=== PATIENT | female | born 1950 | race Caucasian/White ===

== ENCOUNTER 2022-02-13 13:08 | Outpatient (CLI) | payer MEDICARE | END 2022-02-13 13:09 | disposition home or self-care (01) | LOC: SCSMRI 13:08 | PROVIDERS: ATTEND Radiology Radiation Oncology | DX: C71.9 Malignant neoplasm of brain, unspecified (principal); Z98.890 Other specified postprocedural states | CPT/HCPCS: 70250; 70553; 82565 ==

== ENCOUNTER 2022-05-21 14:24 | Day surgery (SDC) | payer MEDICARE ==
[2022-05-21] MEDS ORDERED: Famotidine/PF 20 mg/2ml Vial SLOW IVP SCH (16:00)
[2022-05-21] MEDS ORDERED: Dexamethasone 10 MG/ML VIAL SLOW IVP SCH (16:00)
[2022-05-21] MEDS ORDERED: diphenhydrAMINE 50 MG/ML VIAL IVP SCH (16:00)
[2022-05-21] MEDS ORDERED: diphenhydrAMINE 25 MG CAP ONE (16:06)
[2022-05-21] MEDS ORDERED: Acetaminophen 500 MG TAB ONE (16:06)
[2022-05-21] MEDS ORDERED: Famotidine/PF 20 mg/2ml Vial ONE (17:22)
[2022-05-21] MEDS ORDERED: Dexamethasone 10 MG/ML VIAL ONE (17:22)
[2022-05-21 20:11] VITALS: TEMP 98.6
[2022-05-21 20:12] VITALS: BP 166/75
== END 2022-05-21 19:15 | disposition home or self-care (01) ==
LOC: ONC/OP 14:24
PROVIDERS: ATTEND Internal Medicine Hematology & Oncology
PROC: 30233R1 Transfusion of Nonautologous Platelets into Peripheral Vein, Percutaneous Approach (ICD-10-PCS; principal; 2022-05-21)
DX: D69.6 Thrombocytopenia, unspecified (principal); D64.9 Anemia, unspecified; Z88.0 Allergy status to penicillin; Z88.2 Allergy status to sulfonamides
CPT/HCPCS: 36415; 36430; 80053; 81001; 82248; 83615; 84100; 84550; 85025; 86850; 86900; 86901; 99212; G0463; J1100; P9035; S0028

== ENCOUNTER 2022-06-03 18:26 | Observation (INO) | payer MEDICARE ==
[~2022-06-03 18:26] MED LIST: Iopamidol-370 76% 500 ML 1 ML ONE
[2022-06-03 20:32] LABS: Mean Corpuscular HGB CONC 33.7 g/dL (32.0-36.0); Mean Corpuscular Hemoglobin 30.6 pg (27.0-31.0); Mean Corpuscular Volume 90.8 fl (78.0-98.0); Mean Platelet Volume 7.7 fL (7.4-10.4); Platelet Count 136 10x3/uL (130-400); RBC Distribution Width 18.8 % (11.5-14.5)
[2022-06-03 20:53] LABS: ALT (SGPT) 13 U/L (8-55); AST (SGOT) 12 U/L (5-34); Albumin 3.6 g/dL (3.4-4.8); Alkaline Phosphatase 81 U/L (40-110); Anion Gap 10 mmol/L (10-20); BUN (Urea Nitrogen) 17 mg/dL (9.8-20.1); Bilirubin, Total 0.5 mg/dL (0.2-1.2); Calc. Creatinine Clearance 0 mL/min (70-130); Calcium 8.2 mg/dL (7.8-10.44); Carbon Dioxide 24 mmol/L (23-31); Chloride 108 mmol/L (98-107); Estimated GFR 78; Globulin 2.3 g/dL (2.4-3.5); Glucose 140 mg/dL (83-110); Potassium 4.6 mmol/L (3.5-5.1); Protein, Total 5.9 g/dL (5.8-8.1); Sodium 137 mmol/L (136-145)
[2022-06-03 20:57] LABS: Band 16 % (5-11); Hypochromia SLIGHT = 6-15 cells (100X) (0-5/hpf); Lymphocytes 8 % (21-51); MDiff Complete? YES; Monocytes 36 % (0-10); Neutrophil 40 % (42-75); Platelet Morphology Comment Appears Adequate
[2022-06-03 20:57] LABS: INR-International Normal Ratio 1.2; Prothrombin Time 15.8 sec (12.0-14.7)
[2022-06-03 20:58] LABS: PTT 24.3 sec (22.9-36.1)
[2022-06-03] MEDS ORDERED: Senokot S 8.6-50 MG TAB PO PRN (22:43)
[2022-06-03] MEDS ORDERED: Ondansetron ODT 4 MG TAB PO PRN (22:43)
[2022-06-03] MEDS ORDERED: Acetaminophen 325 MG TAB PO PRN (22:43)
[2022-06-03] MEDS ORDERED: Heparin 10,000 UNITS/ 10 ML VIAL SLOW IVP SCH (22:45)
[2022-06-03 23:24] LABS: Hemoglobin 10.9 g/dL (12.0-16.0); Platelet Count 131 10x3/uL (130-400)
[2022-06-03 23:34] LABS: Hemoglobin A1c 6.3 % (4.0-6.0)
[2022-06-04 01:31] VITALS: BMI 32.2
[2022-06-04 04:42] LABS: SARS-CoV-2 NAA Rapid Test DETECTED (NotDetected)
[2022-06-04] MEDS ORDERED: Levothyroxine Sodium 125 MCG TAB PO SCH (06:00)
[2022-06-04 08:04] LABS: Hemoglobin 10.6 g/dL (12.0-16.0); Mean Corpuscular HGB CONC 33.7 g/dL (32.0-36.0); Mean Corpuscular Hemoglobin 30.9 pg (27.0-31.0); Mean Corpuscular Volume 91.6 fl (78.0-98.0); Mean Platelet Volume 8.1 fL (7.4-10.4); Platelet Count 165 10x3/uL (130-400); RBC Distribution Width 19.1 % (11.5-14.5); Red Blood Cell (RBC) Count 3.45 mill/uL (4.20-5.40); White Blood Cell (WBC) Count 1.9 10x3/uL (4.8-10.8)
[2022-06-04 08:34] LABS: PTT Greater than 250.0 sec (22.9-36.1)
[2022-06-04] MEDS ORDERED: Heparin 25,000 units/D5W 500 ML IVPB SCH (09:00)
[2022-06-04] MEDS ORDERED: Famotidine 20 MG TAB PO SCH (09:00)
[2022-06-04] MEDS ORDERED: levETIRAcetam 500 MG TAB PO SCH (09:00)
[2022-06-04 09:21] LABS: Band 8 % (5-11); Lymphocytes 28 % (21-51); MDiff Complete? YES; Monocytes 26 % (0-10); Neutrophil 38 % (42-75); Nucleated RBC 2 % (0); Platelet Morphology Comment Appears Adequate; Polychromasia SLIGHT = 2-3 cells (100X) (0-2/hpf)
[2022-06-04 10:04] VITALS: BP 134/71; TEMP 97.6
== END 2022-06-04 12:15 | disposition home or self-care (01) ==
LOC: ERS 18:26 → 2SW 22:27
PROVIDERS: ADMIT Hospitalist; ATTEND Hospitalist
DX: I82.412 Acute embolism and thrombosis of left femoral vein (principal); I82.492 Acute embolism and thrombosis of other specified deep vein of left lower extremity; I82.432 Acute embolism and thrombosis of left popliteal vein; D36.7 Benign neoplasm of other specified sites; C71.9 Malignant neoplasm of brain, unspecified; E78.5 Hyperlipidemia, unspecified; E11.9 Type 2 diabetes mellitus without complications; I10 Essential (primary) hypertension; E03.9 Hypothyroidism, unspecified; D72.819 Decreased white blood cell count, unspecified; K44.9 Diaphragmatic hernia without obstruction or gangrene; U07.1 COVID-19; Z66 Do not resuscitate; Z79.890 Hormone replacement therapy; Z79.899 Other long term (current) drug therapy; Z88.0 Allergy status to penicillin; Z88.2 Allergy status to sulfonamides; Z89.511 Acquired absence of right leg below knee
CPT/HCPCS: 71275; 80053; 83036; 83605; 83880; 84484; 85014; 85018; 85025 ×2; 85049; 85610; 85730 ×3; 93971; 96374; 96376; 99284; G0378 ×2; U0002; 36415; J1644; Q9967

== ENCOUNTER 2022-07-14 16:57 | Inpatient (IN) | payer MEDICARE ==
[2022-07-14 19:09] LABS: #Lymphocytes 0.2 thou/uL (1.20-3.40); #Monocytes 0.3 thou/uL (0.11-0.59); #Neutrophils 4.1 thou/uL (1.40-6.50); %Basophils 0.2 % (0.0-1.0); %Eosinophils 0.4 % (0.0-10.0); %Lymphocytes 4.3 % (21.0-51.0); %Monocytes 5.4 % (0.0-10.0); %Neutrophils 89.8 % (42.0-75.0); Hemoglobin 12.2 g/dL (12.0-16.0); Mean Corpuscular HGB CONC 34.2 g/dL (32.0-36.0); Mean Corpuscular Hemoglobin 32.8 pg (27.0-31.0); Mean Corpuscular Volume 95.8 fl (78.0-98.0); Mean Platelet Volume 8.8 fL (7.4-10.4); Platelet Count 57 10x3/uL (130-400); RBC Distribution Width 18.2 % (11.5-14.5); Red Blood Cell (RBC) Count 3.72 mill/uL (4.20-5.40); White Blood Cell (WBC) Count 4.6 10x3/uL (4.8-10.8)
[2022-07-14] MEDS ORDERED: Cefepime 2 GM VIAL ONE (19:22)
[2022-07-14 19:24] LABS: Anisocytosis SLIGHT = 6-15 cells (100X) (0-5/hpf); MDiff Complete? YES; Ovalocytes SLIGHT = 2-5 cells (100X) (0-1/hpf); Platelet Morphology Comment Appears Decreased; Polychromasia SLIGHT = 2-3 cells (100X) (0-2/hpf)
[2022-07-14 19:25] LABS: ALT (SGPT) 17 U/L (8-55); AST (SGOT) 15 U/L (5-34); Albumin 3.5 g/dL (3.4-4.8); Alkaline Phosphatase 54 U/L (40-110); Anion Gap 12 mmol/L (10-20); BUN (Urea Nitrogen) 15 mg/dL (9.8-20.1); Bilirubin, Total 0.9 mg/dL (0.2-1.2); Calc. Creatinine Clearance 0 mL/min (70-130); Calcium 8.5 mg/dL (7.8-10.44); Carbon Dioxide 24 mmol/L (23-31); Chloride 103 mmol/L (98-107); Estimated GFR 71; Glucose 112 mg/dL (83-110); Potassium 4.1 mmol/L (3.5-5.1); Protein, Total 6.5 g/dL (5.8-8.1); Sodium 135 mmol/L (136-145)
[2022-07-14 19:27] LABS: Lipase 15 U/L (8-78)
[2022-07-14 19:28] LABS: CK (CPK) 18 U/L (29-168)
[2022-07-14 19:55] LABS: Bilirubin Negative (Negative); Blood, Urine Negative (Negative); Clarity Clear (Clear); Glucose, Urine (Dipstick) Normal (Negative); Ketone, Urine Negative (Negative); Leukocyte Negative Leu/uL (Negative); Nitrite Negative (Negative); Protein, Urine (Dipstick) 10 mg/dL (Neg-Trace); Specific Gravity, Urine 1.014 (1.002-1.036)
[2022-07-14] MEDS ORDERED: VANCOMYCIN 2 GRAM/500 ML BAG 2 GM in Premix Bag 1 BAG IVPB SCH (21:00)
[2022-07-14] MEDS ORDERED: Ondansetron PF 4 MG/2 ML Vial IVP PRN (22:20)
[2022-07-14] MEDS ORDERED: Acetaminophen 650 MG Suppository PR PRN (22:20)
[2022-07-14] MEDS ORDERED: Ondansetron ODT 4 MG TAB PO PRN (22:20)
[2022-07-15] MEDS: Sodium Chloride 0.9% 1,000 ML IV SCH ×3 (01:22→20:55)
[2022-07-15 01:35] VITALS: BMI 33.5
[2022-07-15 07:31] LABS: #Lymphocytes 0.1 thou/uL (1.20-3.40); #Monocytes 0.2 thou/uL (0.11-0.59); #Neutrophils 3.4 thou/uL (1.40-6.50); %Eosinophils 0.6 % (0.0-10.0); %Lymphocytes 2.3 % (21.0-51.0); %Monocytes 5.6 % (0.0-10.0); %Neutrophils 90.5 % (42.0-75.0); Hemoglobin 10.1 g/dL (12.0-16.0); Mean Corpuscular HGB CONC 32.9 g/dL (32.0-36.0); Mean Corpuscular Hemoglobin 31.8 pg (27.0-31.0); Mean Corpuscular Volume 96.8 fl (78.0-98.0); Mean Platelet Volume 9.3 fL (7.4-10.4); Platelet Count 53 10x3/uL (130-400); RBC Distribution Width 17.7 % (11.5-14.5); Red Blood Cell (RBC) Count 3.17 mill/uL (4.20-5.40); White Blood Cell (WBC) Count 3.7 10x3/uL (4.8-10.8)
[2022-07-15 08:01] LABS: Anion Gap 10 mmol/L (10-20); BUN (Urea Nitrogen) 11 mg/dL (9.8-20.1); Calc. Creatinine Clearance 108 mL/min (70-130); Calcium 7.7 mg/dL (7.8-10.44); Carbon Dioxide 20 mmol/L (23-31); Chloride 108 mmol/L (98-107); Estimated GFR 91; Glucose 110 mg/dL (83-110); Potassium 3.8 mmol/L (3.5-5.1); Sodium 134 mmol/L (136-145)
[2022-07-15] MEDS ORDERED: VANCOMYCIN 1.25 GM/250 ML BAG IVPB SCH (09:00)
[2022-07-15] MEDS: Cefepime 2 GM in Sodium Chloride 0.9% 100 ML IVPB SCH ×2 (09:14→20:54)
[2022-07-15] MEDS: Acetaminophen 325 MG TAB PO PRN ×2 (15:33→20:54)
[2022-07-15] MEDS ORDERED: Dexamethasone 4 MG TAB PO SCH (16:30)
[2022-07-15] MEDS ORDERED: hydrOXYzine 25 MG TAB PO SCH (20:15)
[2022-07-15] MEDS: levETIRAcetam 500 MG TAB PO SCH (20:53)
[2022-07-15] MEDS: Apixaban 5 MG TAB PO SCH (20:53)
[2022-07-15] MEDS: VANCOMYCIN 1.75 GM/500 ML BAG 1.75 GM in Premix Bag 1 BAG IVPB SCH (23:28)
[2022-07-16] MEDS: Acetaminophen 325 MG TAB PO PRN ×2 (05:01→23:11)
[2022-07-16] MEDS: Levothyroxine Sodium 125 MCG TAB PO SCH (05:02)
[2022-07-16] MEDS: Sodium Chloride 0.9% 1,000 ML IV SCH ×3 (06:30→23:40)
[2022-07-16 09:25] LABS: #Lymphocytes 0.2 thou/uL (1.20-3.40); #Monocytes 0.2 thou/uL (0.11-0.59); #Neutrophils 3.8 thou/uL (1.40-6.50); %Eosinophils 0.6 % (0.0-10.0); %Lymphocytes 4.7 % (21.0-51.0); %Monocytes 3.5 % (0.0-10.0); %Neutrophils 91.1 % (42.0-75.0); Hemoglobin 11.4 g/dL (12.0-16.0); Mean Corpuscular HGB CONC 32.3 g/dL (32.0-36.0); Mean Corpuscular Hemoglobin 31.1 pg (27.0-31.0); Mean Platelet Volume 9.4 fL (7.4-10.4); Platelet Count 63 10x3/uL (130-400); RBC Distribution Width 17.4 % (11.5-14.5); Red Blood Cell (RBC) Count 3.69 mill/uL (4.20-5.40); White Blood Cell (WBC) Count 4.1 10x3/uL (4.8-10.8)
[2022-07-16] MEDS: Cefepime 2 GM in Sodium Chloride 0.9% 100 ML IVPB SCH ×2 (09:43→21:00)
[2022-07-16] MEDS: Furosemide 40 MG TAB PO SCH (09:45)
[2022-07-16] MEDS: levETIRAcetam 500 MG TAB PO SCH ×2 (09:45→21:00)
[2022-07-16] MEDS: Apixaban 5 MG TAB PO SCH ×2 (09:45→21:00)
[2022-07-16 10:43] LABS: Anion Gap 12 mmol/L (10-20); BUN (Urea Nitrogen) 13 mg/dL (9.8-20.1); Calc. Creatinine Clearance 113 mL/min (70-130); Calcium 8.4 mg/dL (7.8-10.44); Carbon Dioxide 18 mmol/L (23-31); Chloride 113 mmol/L (98-107); Estimated GFR 92; Glucose 145 mg/dL (83-110); Potassium 3.6 mmol/L (3.5-5.1); Sodium 139 mmol/L (136-145)
[2022-07-16 22:49] LABS: Vancomycin, Trough 12.3 ug/mL
[2022-07-16] MEDS: VANCOMYCIN 1.75 GM/500 ML BAG 1.75 GM in Premix Bag 1 BAG IVPB SCH (23:15)
[2022-07-16] MEDS: VANCOMYCIN 2 GRAM/500 ML BAG 2 GM in Premix Bag 1 BAG IVPB SCH (23:36)
[2022-07-17] MEDS: Levothyroxine Sodium 125 MCG TAB PO SCH (05:46)
[2022-07-17 06:45] LABS: Hemoglobin 10.9 g/dL (12.0-16.0); Mean Corpuscular Hemoglobin 32.1 pg (27.0-31.0); Mean Corpuscular Volume 97.4 fl (78.0-98.0); Mean Platelet Volume 10.1 fL (7.4-10.4); Platelet Count 64 10x3/uL (130-400); RBC Distribution Width 17.8 % (11.5-14.5); Red Blood Cell (RBC) Count 3.38 mill/uL (4.20-5.40); White Blood Cell (WBC) Count 4.5 10x3/uL (4.8-10.8)
[2022-07-17 07:05] LABS: Anion Gap 13 mmol/L (10-20); BUN (Urea Nitrogen) 13 mg/dL (9.8-20.1); Calc. Creatinine Clearance 109 mL/min (70-130); Calcium 8.2 mg/dL (7.8-10.44); Carbon Dioxide 18 mmol/L (23-31); Chloride 111 mmol/L (98-107); Estimated GFR 92; Glucose 95 mg/dL (83-110); Potassium 4.3 mmol/L (3.5-5.1); Sodium 138 mmol/L (136-145)
[2022-07-17] MEDS: Furosemide 40 MG TAB PO SCH (08:12)
[2022-07-17] MEDS: levETIRAcetam 500 MG TAB PO SCH ×2 (08:12→21:30)
[2022-07-17] MEDS: Dexamethasone 4 MG TAB PO SCH (08:12)
[2022-07-17] MEDS: Cefepime 2 GM in Sodium Chloride 0.9% 100 ML IVPB SCH ×2 (08:12→21:29)
[2022-07-17] MEDS: Apixaban 5 MG TAB PO SCH ×2 (08:12→21:29)
[2022-07-17] MEDS: Sodium Chloride 0.9% 1,000 ML IV SCH (08:29)
[2022-07-17 09:30] LABS: Band 30 % (5-11); Lymphocytes 5 % (21-51); MDiff Complete? YES; Monocytes 3 % (0-10); Neutrophil 59 % (42-75); Platelet Morphology Comment Appears Decreased; RBC Morphology Normal; Reactive Lymphocytes 3 % (0-10)
[2022-07-18] MEDS: Acetaminophen 325 MG TAB PO PRN ×3 (00:22→19:57)
[2022-07-18] MEDS: VANCOMYCIN 2 GRAM/500 ML BAG 2 GM in Premix Bag 1 BAG IVPB SCH (00:56)
[2022-07-18] MEDS: Levothyroxine Sodium 125 MCG TAB PO SCH (05:33)
[2022-07-18] MEDS: Sodium Chloride 0.9% 1,000 ML IV SCH ×2 (05:33→08:47)
[2022-07-18 07:03] LABS: #Lymphocytes 0.2 thou/uL (1.20-3.40); #Monocytes 0.2 thou/uL (0.11-0.59); #Neutrophils 2.9 thou/uL (1.40-6.50); %Eosinophils 1.2 % (0.0-10.0); %Lymphocytes 4.9 % (21.0-51.0); %Neutrophils 86.9 % (42.0-75.0); Hemoglobin 9.8 g/dL (12.0-16.0); Mean Corpuscular HGB CONC 34.7 g/dL (32.0-36.0); Mean Corpuscular Hemoglobin 33.6 pg (27.0-31.0); Mean Corpuscular Volume 96.8 fl (78.0-98.0); Mean Platelet Volume 9.3 fL (7.4-10.4); Platelet Count 64 10x3/uL (130-400); RBC Distribution Width 17.6 % (11.5-14.5); Red Blood Cell (RBC) Count 2.92 mill/uL (4.20-5.40); White Blood Cell (WBC) Count 3.3 10x3/uL (4.8-10.8)
[2022-07-18 07:11] LABS: Anion Gap 11 mmol/L (10-20); BUN (Urea Nitrogen) 15 mg/dL (9.8-20.1); Calc. Creatinine Clearance 111 mL/min (70-130); Calcium 8.1 mg/dL (7.8-10.44); Carbon Dioxide 20 mmol/L (23-31); Chloride 112 mmol/L (98-107); Estimated GFR 92; Glucose 102 mg/dL (83-110); Potassium 3.5 mmol/L (3.5-5.1); Sodium 139 mmol/L (136-145)
[2022-07-18] MEDS: Apixaban 5 MG TAB PO SCH ×2 (08:46→19:57)
[2022-07-18] MEDS: Cefepime 2 GM in Sodium Chloride 0.9% 100 ML IVPB SCH ×2 (08:46→19:57)
[2022-07-18] MEDS: Furosemide 40 MG TAB PO SCH (08:46)
[2022-07-18] MEDS: levETIRAcetam 500 MG TAB PO SCH ×2 (08:46→19:57)
[2022-07-18 23:14] LABS: Vancomycin, Trough 15.8 ug/mL
[2022-07-19] MEDS: VANCOMYCIN 2 GRAM/500 ML BAG 2 GM in Premix Bag 1 BAG IVPB SCH (00:42)
[2022-07-19] MEDS: Levothyroxine Sodium 125 MCG TAB PO SCH (05:56)
[2022-07-19 07:11] LABS: #Eosinphils 0.1 thou/uL (0.0-0.7); #Lymphocytes 0.1 thou/uL (1.20-3.40); #Monocytes 0.3 thou/uL (0.11-0.59); #Neutrophils 3.5 thou/uL (1.40-6.50); %Eosinophils 1.8 % (0.0-10.0); %Lymphocytes 3.5 % (21.0-51.0); %Neutrophils 87.7 % (42.0-75.0); Hemoglobin 9.5 g/dL (12.0-16.0); Mean Corpuscular Hemoglobin 32.9 pg (27.0-31.0); Mean Corpuscular Volume 96.8 fl (78.0-98.0); Mean Platelet Volume 9.2 fL (7.4-10.4); Platelet Count 73 10x3/uL (130-400); RBC Distribution Width 17.4 % (11.5-14.5)
[2022-07-19 07:28] LABS: Anion Gap 12 mmol/L (10-20); BUN (Urea Nitrogen) 15 mg/dL (9.8-20.1); Calc. Creatinine Clearance 106 mL/min (70-130); Carbon Dioxide 22 mmol/L (23-31); Chloride 106 mmol/L (98-107); Estimated GFR 91; Glucose 104 mg/dL (83-110); Potassium 3.6 mmol/L (3.5-5.1); Sodium 136 mmol/L (136-145)
[2022-07-19] MEDS: levETIRAcetam 500 MG TAB PO SCH ×2 (08:49→21:01)
[2022-07-19] MEDS: Cefepime 2 GM in Sodium Chloride 0.9% 100 ML IVPB SCH ×2 (08:49→21:02)
[2022-07-19] MEDS: Furosemide 40 MG TAB PO SCH (08:49)
[2022-07-19] MEDS: Apixaban 5 MG TAB PO SCH ×2 (08:49→21:01)
[2022-07-19] MEDS: Dexamethasone 4 MG TAB PO SCH (08:49)
[2022-07-19] MEDS: Acetaminophen 325 MG TAB PO PRN (08:52)
[2022-07-19] MEDS ORDERED: Bisacodyl 5 MG TAB PO PRN (10:37)
[2022-07-19] MEDS ORDERED: Ibuprofen 200 MG TAB PO PRN (10:38)
[2022-07-19] MEDS ORDERED: Polyethylene Glycol 3350 17 GM Packet PO PRN (17:58)
[2022-07-19] MEDS ORDERED: Acetaminophen 325 MG TAB PO PRN (19:00)
[2022-07-19] MEDS: diphenhydrAMINE 25 MG CAP PO PRN (21:01)
[2022-07-20] MEDS: VANCOMYCIN 2 GRAM/500 ML BAG 2 GM in Premix Bag 1 BAG IVPB SCH (02:06)
[2022-07-20] MEDS: Acetaminophen 325 MG TAB PO PRN (02:50)
[2022-07-20] MEDS: Levothyroxine Sodium 125 MCG TAB PO SCH (06:00)
[2022-07-20] MEDS: Apixaban 5 MG TAB PO SCH ×2 (08:52→20:28)
[2022-07-20] MEDS: levETIRAcetam 500 MG TAB PO SCH ×2 (08:52→20:28)
[2022-07-20] MEDS: Furosemide 40 MG TAB PO SCH (08:52)
[2022-07-20] MEDS: Doxycycline 100 MG CAP PO SCH ×2 (08:52→20:28)
[2022-07-20] MEDS: diphenhydrAMINE 25 MG CAP PO PRN (20:28)
[2022-07-21] MEDS: Acetaminophen 325 MG TAB PO PRN (02:30)
[2022-07-21] MEDS: Levothyroxine Sodium 125 MCG TAB PO SCH (06:13)
[2022-07-21] MEDS: levETIRAcetam 500 MG TAB PO SCH ×2 (08:56→19:58)
[2022-07-21] MEDS: Apixaban 5 MG TAB PO SCH ×2 (08:56→19:58)
[2022-07-21] MEDS: Dexamethasone 4 MG TAB PO SCH (08:56)
[2022-07-21] MEDS: Furosemide 40 MG TAB PO SCH (08:56)
[2022-07-21] MEDS: Doxycycline 100 MG CAP PO SCH ×2 (08:57→19:58)
[2022-07-21 09:18] LABS: #Eosinphils 0.1 thou/uL (0.0-0.7); #Lymphocytes 0.2 thou/uL (1.20-3.40); #Monocytes 0.3 thou/uL (0.11-0.59); #Neutrophils 2.9 thou/uL (1.40-6.50); %Basophils 0.3 % (0.0-1.0); %Eosinophils 2.6 % (0.0-10.0); %Lymphocytes 5.9 % (21.0-51.0); %Monocytes 7.9 % (0.0-10.0); %Neutrophils 83.3 % (42.0-75.0); Mean Corpuscular HGB CONC 33.1 g/dL (32.0-36.0); Mean Corpuscular Hemoglobin 31.9 pg (27.0-31.0); Mean Corpuscular Volume 96.6 fl (78.0-98.0); Mean Platelet Volume 9.3 fL (7.4-10.4); Platelet Count 126 10x3/uL (130-400); RBC Distribution Width 17.5 % (11.5-14.5); Red Blood Cell (RBC) Count 3.45 mill/uL (4.20-5.40); White Blood Cell (WBC) Count 3.5 10x3/uL (4.8-10.8)
[2022-07-21 09:35] LABS: Anion Gap 13 mmol/L (10-20); BUN (Urea Nitrogen) 17 mg/dL (9.8-20.1); Calc. Creatinine Clearance 100 mL/min (70-130); Calcium 8.9 mg/dL (7.8-10.44); Carbon Dioxide 23 mmol/L (23-31); Chloride 104 mmol/L (98-107); Estimated GFR 86; Glucose 140 mg/dL (83-110); Sodium 136 mmol/L (136-145)
[2022-07-22] MEDS: Levothyroxine Sodium 125 MCG TAB PO SCH (05:11)
[2022-07-22 07:01] LABS: #Lymphocytes 0.2 thou/uL (1.20-3.40); #Monocytes 0.3 thou/uL (0.11-0.59); #Neutrophils 2.2 thou/uL (1.40-6.50); %Basophils 1.8 % (0.0-1.0); %Eosinophils 1.6 % (0.0-10.0); %Lymphocytes 6.9 % (21.0-51.0); %Monocytes 10.7 % (0.0-10.0); %Neutrophils 79.1 % (42.0-75.0); Hemoglobin 10.6 g/dL (12.0-16.0); Mean Corpuscular HGB CONC 33.5 g/dL (32.0-36.0); Mean Corpuscular Hemoglobin 32.4 pg (27.0-31.0); Mean Corpuscular Volume 96.8 fl (78.0-98.0); Mean Platelet Volume 8.7 fL (7.4-10.4); Platelet Count 152 10x3/uL (130-400); RBC Distribution Width 17.2 % (11.5-14.5); Red Blood Cell (RBC) Count 3.28 mill/uL (4.20-5.40); White Blood Cell (WBC) Count 2.8 10x3/uL (4.8-10.8)
[2022-07-22 07:25] LABS: Anion Gap 15 mmol/L (10-20); BUN (Urea Nitrogen) 22 mg/dL (9.8-20.1); Calc. Creatinine Clearance 113 mL/min (70-130); Calcium 8.6 mg/dL (7.8-10.44); Carbon Dioxide 23 mmol/L (23-31); Chloride 104 mmol/L (98-107); Estimated GFR 92; Glucose 107 mg/dL (83-110); Potassium 3.7 mmol/L (3.5-5.1); Sodium 138 mmol/L (136-145)
[2022-07-22] MEDS: Apixaban 5 MG TAB PO SCH ×2 (08:03→19:41)
[2022-07-22] MEDS: levETIRAcetam 500 MG TAB PO SCH ×2 (08:03→19:41)
[2022-07-22] MEDS: Furosemide 40 MG TAB PO SCH (08:03)
[2022-07-22] MEDS: Doxycycline 100 MG CAP PO SCH ×2 (08:07→19:41)
[2022-07-23] MEDS: Acetaminophen 325 MG TAB PO PRN (03:02)
[2022-07-23] MEDS: Levothyroxine Sodium 125 MCG TAB PO SCH ×3 (05:14→06:11)
[2022-07-23 07:41] LABS: #Eosinphils 0.1 thou/uL (0.0-0.7); #Lymphocytes 0.2 thou/uL (1.20-3.40); #Monocytes 0.3 thou/uL (0.11-0.59); #Neutrophils 2.1 thou/uL (1.40-6.50); %Eosinophils 4.1 % (0.0-10.0); %Lymphocytes 8.1 % (21.0-51.0); %Monocytes 12.4 % (0.0-10.0); %Neutrophils 75.4 % (42.0-75.0); Hemoglobin 10.8 g/dL (12.0-16.0); Mean Corpuscular Hemoglobin 32.4 pg (27.0-31.0); Mean Corpuscular Volume 95.3 fl (78.0-98.0); Mean Platelet Volume 8.5 fL (7.4-10.4); Platelet Count 168 10x3/uL (130-400); RBC Distribution Width 17.3 % (11.5-14.5); Red Blood Cell (RBC) Count 3.34 mill/uL (4.20-5.40); White Blood Cell (WBC) Count 2.7 10x3/uL (4.8-10.8)
[2022-07-23 08:05] LABS: Anion Gap 13 mmol/L (10-20); BUN (Urea Nitrogen) 22 mg/dL (9.8-20.1); Calc. Creatinine Clearance 100 mL/min (70-130); Calcium 8.5 mg/dL (7.8-10.44); Carbon Dioxide 21 mmol/L (23-31); Chloride 105 mmol/L (98-107); Estimated GFR 86; Glucose 106 mg/dL (83-110); Potassium 3.8 mmol/L (3.5-5.1); Sodium 135 mmol/L (136-145)
[2022-07-23 08:09] VITALS: BP 131/82; TEMP 97.3
[2022-07-23] MEDS: Dexamethasone 4 MG TAB PO SCH (08:23)
[2022-07-23] MEDS: Apixaban 5 MG TAB PO SCH (08:23)
[2022-07-23] MEDS: Furosemide 40 MG TAB PO SCH (08:23)
[2022-07-23] MEDS: Doxycycline 100 MG CAP PO SCH (08:23)
[2022-07-23] MEDS: levETIRAcetam 500 MG TAB PO SCH (08:23)
== END 2022-07-23 13:41 | DRG 564 ==
LOC: ERS 16:57 → T4-A 21:19 → OBSVTOIN 07-16 16:48
PROVIDERS: ADMIT Student in an Organized Health Care Education/Training Program; ATTEND Internal Medicine
DX: T87.43 Infection of amputation stump, right lower extremity (principal); A41.9 Sepsis, unspecified organism; G93.41 Metabolic encephalopathy; G93.6 Cerebral edema; C71.9 Malignant neoplasm of brain, unspecified; E87.1 Hypo-osmolality and hyponatremia; Z20.822 Contact with and (suspected) exposure to COVID-19; K59.00 Constipation, unspecified; D64.9 Anemia, unspecified; Z66 Do not resuscitate; K21.9 Gastro-esophageal reflux disease without esophagitis; E05.90 Thyrotoxicosis, unspecified without thyrotoxic crisis or storm; I10 Essential (primary) hypertension; E78.5 Hyperlipidemia, unspecified; D69.6 Thrombocytopenia, unspecified; Z86.718 Personal history of other venous thrombosis and embolism; Z79.01 Long term (current) use of anticoagulants; Z88.0 Allergy status to penicillin; Z88.2 Allergy status to sulfonamides; Z79.890 Hormone replacement therapy; Z79.899 Other long term (current) drug therapy; Z98.49 Cataract extraction status, unspecified eye; I25.2 Old myocardial infarction; Z88.6 Allergy status to analgesic agent
CPT/HCPCS: 36415; 70450; 71045; 80048; 80053; 80202; 81001; 82248; 82550; 83605; 83615; 83690; 83735; 84100; 84443; 84484; 84550; 85025; 87077; 87086; 87149; 87633; 93005; 96365; 96366; 96375; 96376; 97139; G0378; J0692; J3370; J3490; J7050; J8540; Q0162; U0003; U0005